=== PATIENT | male | born 1985 | race Caucasian/White ===

== ENCOUNTER 2017-06-20 06:23 | Inpatient (IN) | payer BC ==
[2017-06-18 15:04] VITALS: BMI 40.1
[2017-06-20] MEDS ORDERED: BUPIVACAINE HCL/PF 0.5% (5MG/ML) 10 ML VIAL ONE (07:14)
[2017-06-20] MEDS ORDERED: DEXAMETHASONE SOD PHOSPHATE/PF 10 MG/ML SDV ONE (07:34)
[2017-06-20] MEDS ORDERED: BUPIVACAINE HCL/PF 0.25% (2.5MG/ML) 10 ML VIAL ONE (07:34)
[2017-06-20] MEDS ORDERED: MIDAZOLAM HCL 2 MG/2 ML SINGLE DOSE VIAL ONE ×3 (07:35→07:41)
[2017-06-20] MEDS ORDERED: fentaNYL CITRATE 250 MCG/5 ML VIAL ONE (07:40)
[2017-06-20] MEDS ORDERED: ePHEDrine SULFATE 50 MG/1 ML AMPULE ONE (07:40)
[2017-06-20] MEDS ORDERED: PROPOFOL 20 ML ONE ×4 (07:41)
[2017-06-20] MEDS ORDERED: SUCCINYLCHOLINE CHLORIDE 200 MG/10 ML VIAL ONE (07:41)
[2017-06-20] MEDS ORDERED: ROCURONIUM BROMIDE 50 MG/5 ML VIAL ONE ×2 (07:41)
[2017-06-20] MEDS ORDERED: KETOROLAC TROMETHAMINE 30 MG/1 ML VIAL ONE (07:43)
[2017-06-20] MEDS ORDERED: DEXAMETHASONE SOD PHOSPHATE 4 MG/1 ML VIAL ONE (07:43)
[2017-06-20] MEDS ORDERED: ceFAZolin SODIUM 1 GM VIAL ONE (07:43)
[2017-06-20] MEDS ORDERED: ceFAZolin SODIUM 1 GM VIAL IVPB ONE (08:36)
[2017-06-20] MEDS ORDERED: ONDANSETRON 4 MG/2 ML VIAL IVPUSH PRN ×2 (08:39→11:07)
[2017-06-20] MEDS ORDERED: PROMETHAZINE HCL 25 MG/1 ML VIAL IVPUSH PRN (08:39)
[2017-06-20] MEDS ORDERED: BUPIVACAINE HCL/PF 0.5% (5MG/ML) 10 ML VIAL IJ ONE (09:28)
[2017-06-20] MEDS ORDERED: DESFLURANE GAS 240 ML BOTTLE IH ONE (10:07)
[2017-06-20] MEDS ORDERED: HYDROmorphone HCl/Pf 2 MG/ML VIAL - FOR OR PYXIS USE IVPB PRN (11:10)
--- NOTE | 2017-06-20 11:14 | OP ---
Operative Note - Note: Operative Date: 06/20/17 Pre-Operative Diagnosis: Rule out leak/obstruction s/p vertical sleeve gastrectomy Operation: Upper endoscopy, EGD Post-Operative Diagnosis: Other (No leak/obstruction) Surgeon: Yobani Quinonez Anesthesia: General Specimens Removed: None Estimated Blood Loss (mls): 0 Operative Report Dictated: Yes
--- NOTE | 2017-06-20 11:18 | OP ---
Operative Note - Note: Operative Date: 06/20/17 Pre-Operative Diagnosis: Morbid Obesity. Sleep Apnea. Elevated Liver Function Tests Operation: Laparoscopic Vertical Sleeve Gastrectomy. Wedge Biopsy of Liver. Diagnostic Laparoscopy Findings: Greater curve sleeve gastrectomy performed with #[address] Wedge Biopsy performed on Liver for Hepatomegaly and elevated LFT Post-Operative Diagnosis: Same as Pre-op (Hepatomegaly) Surgeon: Nate Quan Livestock Rancher: Yobani Quinonez Anesthesia: General Specimens Removed: Greater curve of stomach. Wedge biopsy of liver Estimated Blood Loss (mls): 200 Operative Report Dictated: Yes
[2017-06-20] MEDS ORDERED: MEPERIDINE HCL CARPU-JECT 50 MG/1 ML DISP.SYRIN IM PRN (11:25)
--- NOTE | 2017-06-20 11:31 | OP ---
DATE OF OPERATION: 06/20/2017 SURGEON: Pearl Quinonez MD PREOPERATIVE DIAGNOSES: Rule out leak/obstruction after a vertical sleeve gastrectomy. POSTOPERATIVE DIAGNOSES: No leak, no obstruction. SPECIMEN: None. ESTIMATED BLOOD LOSS: None. DRAINS: None. ANESTHESIA: GET. REASON FOR PROCEDURE: This is a 31-year-old gentleman who is undergoing a laparoscopic vertical sleeve gastrectomy by Dr. Nate Quan. To rule out obstruction or leak, upper endoscopy was requested. DESCRIPTION OF PROCEDURE: The endoscope was inserted into the patients mouth, and the esophagus, GE junction, gastric staple line and pouch were inspected. Hemostasis was noted. No leak or obstruction was noted. The stomach was suctioned, and the endoscope removed. The remainder of the procedure was continued by Dr. Nate Quan. PEARL QUINONEZ M.D. CÉSAR/[id number]
[2017-06-20] MEDS ORDERED: ACETAMINOPHEN INJECTION 100 ML IVPB ONE (11:32)
[2017-06-20] MEDS: METOCLOPRAMIDE HCL INJECTION 10 MG/2 ML VIAL IVPUSH SCH ×3 (11:35→23:24)
--- NOTE | 2017-06-20 12:00 | OP ---
DATE OF OPERATION: 06/20/2017 PREOPERATIVE DIAGNOSES: 1. Morbid obesity. 2. Sleep apnea. 3. Elevated liver function tests. POSTOPERATIVE DIAGNOSES: 1. Morbid obesity. 2. Sleep apnea. 3. Elevated liver function tests. 4. Hepatomegaly. PROCEDURE PERFORMED: 1. Laparoscopic vertical sleeve gastrectomy. 2. Wedge biopsy of left lobe of liver. 3. Diagnostic laparoscopy. OPERATING SURGEON: Nate Quan MD HOME SERVICE DIRECTOR: Yobani Quinonez MD ANESTHESIA: General. OPERATIVE PROCEDURE: The patient was brought into the operating room, placed on the OR table in the supine position. All precautions were taken initially including padding for the back and the feet, and Venodyne boots were placed on both lower extremities. At that point, the abdomen was prepped and draped in the usual manner. A Veress needle was placed in the left upper quadrant, and a pneumoperitoneum was established. A number 12 bladeless trocar was placed in the left upper quadrant. Through that trocar, a laparoscopic camera was placed. Under direct vision, a number 15 bladeless trocar was placed in the midline in the supraumbilical position, followed by a number 5 bladeless trocar in the right upper quadrant and a number 5 bladeless trocar below the left costal margin. A Fran liver retractor was then placed in the epigastrium to retract the left lobe of the liver. The left lobe was noted to be extremely enlarged, and because of the elevated liver function tests on the preoperative labs, it was decided that a wedge biopsy would be performed. The liver was very thickened and heavy and boggy appearing. On the edge of the left lobe inferiorly, the LigaSure device was used to dissect a triangular wedge portion of liver. When it was completed, it was sent off the field as specimen to Pathology, and the parenchyma was easily controlled with electrocautery. At this point, attention was directed to the distal part of the stomach where the pylorus was found, and 6 cm were measured proximally. Here, on the greater curve, the operating surgeon lifted the stomach toward the anterior abdominal wall as the assistant strength coach surgeon retracted the gastrocolic ligament inferiorly. The LigaSure device was used to dissect the gastrocolic ligament off the greater curve of stomach. There were a few bleeding areas noted on the stomach wall but also in the gastrocolic ligament that remained. This was controlled with an Endostitch and also with the LigaSure device. The LigaSure continued to be utilized in a superior and vertical direction until the final short gastric vessel between the proximal fundus and the superior pole of spleen was divided. At this juncture, Anesthesia advanced a number 40 bougie. With the bougie held along the lesser curvature, a series of steve was performed which the first 2 being black load steve 6 cm in length along the bougie. This was followed by a series of purple load staple, also along the bougie until the final staple was fired in the left upper quadrant and the greater curve was now completely detached from the lesser curve. It should be noted that prior to firing each staple, both the anterior and posterior salmeron were checked that they were intact. In the area of the esophagogastric junction, approximately 1 to 1.5 cm of serosa remained on the anterior and posterior surfaces. At this juncture of the procedure, Dr. Quinonez stepped out of the procedure and performed an upper endoscopy. The details of the procedure are described in his operative note, but it showed that there were no signs of leaks from the staple line, and he got the endoscope all the way down to the pylorus, showing no obstruction. At this point, the greater curvature that was resected was removed through the number 15 trocar site and sent off the field as specimen to Pathology. Surgicel was placed in the area of the resected stomach, both in the remaining gastrocolic ligament and also along the remaining stomach with the staple line in order to prevent any postoperative bleeding. Under direct vision, all trocars were removed, and the pneumoperitoneum was released. All trocar sites then infused with 0.25% Marcaine and closed with 4-0 Biosyn in subcuticular fashion. The number 15 trocar in the midline was first closed with 3-0 Vicryl on the subcutaneous tissue, followed by 4-0 Biosyn in subcuticular fashion. Dressings were applied. Patient awoke from anesthesia and transferred out of the operating room to the recovery room in stable condition. EXPECTED BLOOD LOSS: 200 mL Sihv [id number]
[2017-06-20 12:17] LABS: HEMATOCRIT 40.6 % (35.4-49); HEMOGLOBIN 13.7 GM/dL (11.7-16.9); MCH 28.9 pg (25.7-33.7); MCHC 33.7 g/dl (32.0-35.9); MEAN CELL VOLUME 85.7 fl (80-96); PLATELET COUNT 265 K/MM3 (134-434); RBC 4.74 M/mm3 (4.00-5.60); WHITE BLOOD COUNT 12.5 K/mm3 (4.0-10.0)
[2017-06-20] MEDS: SODIUM CHLORIDE 1,000 ML IV SCH ×2 (12:25→20:32)
[2017-06-20] MEDS ORDERED: ACETAMINOPHEN 1000 MG/100 ML VIAL (NON FORMULARY) IVPB ONE (12:36)
[2017-06-20 12:39] LABS: ALBUMIN 3.8 g/dl (3.4-5.0); ANION GAP 10 (8-16); BILIRUBIN,TOTAL 0.5 mg/dL (0.2-1.0); BLOOD UREA NITROGEN 15 mg/dL (7-18); CALCIUM 8.2 mg/dL (8.5-10.1); CHLORIDE 103 mmol/L (98-107); CO2 25 mmol/L (21-32); GLUCOSE,RANDOM 153 mg/dL (74-106); POTASSIUM 3.9 mmol/L (3.5-5.1); SGPT/ALT 55 U/L (12-78); SODIUM 138 mmol/L (136-145); TOT PROT 6.6 g/dl (6.4-8.2)
[2017-06-20 12:42] LABS: ALK PHOS 57 U/L (45-117); SGOT/AST 32 U/L (15-37)
[2017-06-20] MEDS: LACTATED RINGERS SOLUTION 1,000 ML IV SCH (15:24)
[2017-06-20] MEDS ORDERED: MEPERIDINE HCL CARPU-JECT 75 MG/1 ML DISP.SYRIN IM PRN (18:21)
[2017-06-20] MEDS: MEPERIDINE HCL CARPU-JECT 50 MG/1 ML DISP.SYRIN IM PRN (20:46)
[2017-06-20] MEDS: ENOXAPARIN NA (PORCINE) 40 MG/0.4 ML DISP.SYRIN SQ SCH (21:32)
[2017-06-20] MEDS: FAMOTIDINE 20 MG/50 ML IVPB 20 MG/50 ML MG IVPB SCH (21:33)
[2017-06-21] MEDS: MEPERIDINE HCL CARPU-JECT 50 MG/1 ML DISP.SYRIN IM PRN ×3 (01:08→10:15)
[2017-06-21] MEDS: METOCLOPRAMIDE HCL INJECTION 10 MG/2 ML VIAL IVPUSH SCH ×4 (05:41→22:17)
[2017-06-21 07:24] LABS: HEMATOCRIT 30.1 % (35.4-49); HEMOGLOBIN 10.5 GM/dL (11.7-16.9); MCH 29.5 pg (25.7-33.7); MCHC 34.7 g/dl (32.0-35.9); MEAN CELL VOLUME 84.8 fl (80-96); MEAN PLT VOLUME 7.8 fl (7.5-11.1); PLATELET COUNT 230 K/MM3 (134-434); RBC 3.55 M/mm3 (4.00-5.60); RDW 13.7 % (11.9-15.9); WHITE BLOOD COUNT 10.3 K/mm3 (4.0-10.0)
[2017-06-21 08:24] LABS: ALBUMIN 3.3 g/dl (3.4-5.0); ALK PHOS 47 U/L (45-117); ANION GAP 9 (8-16); BILIRUBIN,TOTAL 0.7 mg/dL (0.2-1.0); BLOOD UREA NITROGEN 12 mg/dL (7-18); CALCIUM 7.6 mg/dL (8.5-10.1); CHLORIDE 105 mmol/L (98-107); CO2 26 mmol/L (21-32); CREATININE 0.8 mg/dL (0.7-1.3); GLUCOSE,RANDOM 114 mg/dL (74-106); POTASSIUM 4.1 mmol/L (3.5-5.1); SGOT/AST 27 U/L (15-37); SGPT/ALT 45 U/L (12-78); SODIUM 140 mmol/L (136-145); TOT PROT 6.3 g/dl (6.4-8.2)
[2017-06-21] MEDS: FAMOTIDINE 20 MG/50 ML IVPB 20 MG/50 ML MG IVPB SCH ×2 (10:13→21:22)
[2017-06-21] MEDS: ENOXAPARIN NA (PORCINE) 40 MG/0.4 ML DISP.SYRIN SQ SCH ×2 (10:14→21:22)
[2017-06-21] MEDS: SODIUM CHLORIDE 1,000 ML IV SCH (10:14)
[2017-06-21] MEDS ORDERED: ACETAMINOPHEN 325 MG TABLET (FP) PO PRN (14:27)
[2017-06-21] MEDS ORDERED: SODIUM CHLORIDE 1,000 ML IV SCH (14:30)
--- NOTE | 2017-06-21 14:37 | PN ---
Progress Note (short form) - Note Progress Note: POD#1 Afebrile, VSS stable now P-presently 92 (was 130 last night) Pt stated was ambulating when pulse increased Pt just went to bathroom and pilse increased to 115-120 (presently 96) BP_125-150/90 Pt feels well Less abdominal pain than last night P/E- Abd- all trocar sites clean, dry Pt ambulating well Pt urinating frequently WBC-10.3 (decreased) H/H-10.5/30.1 (decreased from 13.7/40.6 post-op) P- PO clear liquids- 2 oz po TID Encourage ambulation, incentive spirometer Cont DVT prophylaxis Check H/H today, again in AM
--- NOTE | 2017-06-21 15:03 | PATH ---
Surgical Pathology Report Patient Name: DAVEY ROD [facility]. Rec. #: [id number] /Age/Gender: 1985 (Age: 31) / M Account: [id number] Location: 4 SO PEDS/ADOL Taken: 06/20/2017 Received: 06/20/2017 Reported: 06/21/2017 Physicians: Nate Quan M.D. Specimen(s) Received A: RULE OUT INTESTINE B: GREATER CURVATURE STOMACH C: LIVER BIOPSY Clinical History Morbid obesity Intraoperative Consult Diagnosis Rule out intestine, frozen section: Gastric mucosa/tissue. Tish Cote M.D., 06/20/17 Final Diagnosis A. DESIGNATED RULE INTESTINE, EXCISION: GASTRIC FUNDIC MUCOSA WITH MODERATE CHRONIC GASTRITIS. IMMUNOSTAIN FOR H. PYLORI IS POSITIVE (MODERATE NUMBER OF ORGANISMS). B. STOMACH, GREATER CURVATURE, SLEEVE GASTRECTOMY: MILD CHRONIC GASTRITIS. IMMUNOSTAIN FOR H. PYLORI IS POSITIVE (FEW TO MODERATE NUMBER OF ORGANISMS). C. 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 TRICHROME STAIN HIGHLIGHTS FOCAL PERICELLULAR FIBROSIS. IRON STAIN DEMONSTRATES MILD IRON DEPOSITS IN HEPATOCYTES. Electronically Signed Duran Cobb M.D. Gross Description A. Received fresh labeled "rule out intestine for frozen section," is a 5.0 x 4.0 x 0.6 cm aggregate of multiple pink-momin, unoriented portions of unremarkable mucosal tissue. Inbound Sales Consultant sections are submitted for frozen section. Inbound Sales Consultant sections are submitted in 2 cassettes as follows: 1-frozen section residue; 2-additional hardware supplies sales representative tissue. B. Received in formalin, labeled "greater curvature of stomach," is a 132 gram, 17.0 x 4.3 x 2.6 cm. portion of stomach with a stapled margin of resection. The serosa is momin-mackey with minimal attached fat. The mucosa is momin-pink with normal folds. No mucosal masses are identified. Inbound Sales Consultant sections are submitted in one cassette. C. Received in formalin labeled "liver biopsy," are 2 momin portions of liver tissue measuring 2.0 x 0.9 x 0.3 cm and 2.0 x 1.2 x 0.6 cm. The larger portion is bisected and the specimen is entirely submitted in one cassette. DL/06/20/2017 saudi06/20/2017
[2017-06-21 16:00] LABS: HEMOGLOBIN 10.2 GM/dL (11.7-16.9); MCH 29.8 pg (25.7-33.7); MCHC 35.2 g/dl (32.0-35.9); MEAN CELL VOLUME 84.6 fl (80-96); MEAN PLT VOLUME 8.1 fl (7.5-11.1); PLATELET COUNT 210 K/MM3 (134-434); RBC 3.42 M/mm3 (4.00-5.60); RDW 13.6 % (11.9-15.9); WHITE BLOOD COUNT 9.4 K/mm3 (4.0-10.0)
--- NOTE | 2017-06-21 16:25 | PN ---
Progress Note (short form) - Note Progress Note: POD #1 - s/p gastric sleeve. Pt. doing well, resting comfortably in bed. No complaints. No apparent anesthetic complications noted. Continue current care.
[2017-06-21 16:31] LABS: ALBUMIN 3.4 g/dl (3.4-5.0); ALK PHOS 44 U/L (45-117); ANION GAP 10 (8-16); BILIRUBIN,TOTAL 0.7 mg/dL (0.2-1.0); BLOOD UREA NITROGEN 10 mg/dL (7-18); CALCIUM 7.7 mg/dL (8.5-10.1); CHLORIDE 104 mmol/L (98-107); CO2 23 mmol/L (21-32); CREATININE 0.7 mg/dL (0.7-1.3); GLUCOSE,RANDOM 103 mg/dL (74-106); POTASSIUM 3.8 mmol/L (3.5-5.1); SGOT/AST 25 U/L (15-37); SGPT/ALT 43 U/L (12-78); SODIUM 137 mmol/L (136-145); TOT PROT 6.2 g/dl (6.4-8.2)
[2017-06-21] MEDS: oxyCODONE HCL 5 MG TABLET PO PRN ×2 (17:50→22:17)
[2017-06-21] MEDS: LACTATED RINGERS SOLUTION 1,000 ML IV SCH (17:51)
[2017-06-22] MEDS: oxyCODONE HCL 5 MG TABLET PO PRN ×3 (03:27→14:23)
[2017-06-22] MEDS: METOCLOPRAMIDE HCL INJECTION 10 MG/2 ML VIAL IVPUSH SCH ×2 (05:45→12:08)
[2017-06-22 07:19] LABS: HEMATOCRIT 28.3 % (35.4-49); HEMOGLOBIN 9.9 GM/dL (11.7-16.9); MCH 29.7 pg (25.7-33.7); MCHC 34.9 g/dl (32.0-35.9); MEAN CELL VOLUME 84.9 fl (80-96); MEAN PLT VOLUME 7.9 fl (7.5-11.1); PLATELET COUNT 199 K/MM3 (134-434); RBC 3.33 M/mm3 (4.00-5.60); RDW 13.6 % (11.9-15.9); WHITE BLOOD COUNT 7.9 K/mm3 (4.0-10.0)
[2017-06-22 07:51] LABS: CHLORIDE 105 mmol/L (98-107); POTASSIUM 3.8 mmol/L (3.5-5.1); SODIUM 139 mmol/L (136-145)
[2017-06-22 07:59] LABS: ALBUMIN 3.4 g/dl (3.4-5.0); ALK PHOS 48 U/L (45-117); ANION GAP 11 (8-16); BILIRUBIN,TOTAL 0.9 mg/dL (0.2-1.0); BLOOD UREA NITROGEN 9 mg/dL (7-18); CALCIUM 7.8 mg/dL (8.5-10.1); CO2 23 mmol/L (21-32); CREATININE 0.7 mg/dL (0.7-1.3); GLUCOSE,RANDOM 86 mg/dL (74-106); SGOT/AST 22 U/L (15-37); SGPT/ALT 36 U/L (12-78); TOT PROT 6.2 g/dl (6.4-8.2)
[2017-06-22] MEDS: ENOXAPARIN NA (PORCINE) 40 MG/0.4 ML DISP.SYRIN SQ SCH (09:46)
[2017-06-22] MEDS: FAMOTIDINE 20 MG/50 ML IVPB 20 MG/50 ML MG IVPB SCH (09:46)
--- NOTE | 2017-06-22 15:12 | PN ---
Progress Note (short form) - Note Progress Note: POD#2 Afebrile; VSS- 72-80 Pt feels well Tolerating PO clear liquids- 3 OZ PO TID NO N/V P/E- Abd-all trocar sites clean, dry Ext- no swelling, no edema WBC-7.9 (decreased) H/H-9.9/28.3 (slight decrease from 10.2/29 yesterday) Reviewed diet, post-op instructions with pt Pt understands well P- D/C home PO clear liquids- 3 oz po TID PO water- 2-4 oz Q1H F/U 5 days
[2017-06-22 16:25] VITALS: BP 136/90; PULSE 78; TEMP 98.6
== END 2017-06-22 16:45 | disposition home or self-care (01) | DRG 621 ==
LOC: JSAMEDAYSX 06:23 → EDSTATUS 11:00 → J4S 15:18
PROVIDERS: ADMIT Surgery; ATTEND Surgery
PROC: 0DJ08ZZ Inspection of Upper Intestinal Tract, Via Natural or Artificial Opening Endoscopic (ICD-10-PCS; 2017-06-20)
PROC: 0DB64Z3 Excision of Stomach, Percutaneous Endoscopic Approach, Vertical (ICD-10-PCS; principal; 2017-06-20 08:00)
PROC: 0FB24ZX Excision of Left Lobe Liver, Percutaneous Endoscopic Approach, Diagnostic (ICD-10-PCS; 2017-06-20 08:00)
DX: E66.01 Morbid (severe) obesity due to excess calories (principal); G47.30 Sleep apnea, unspecified; R16.0 Hepatomegaly, not elsewhere classified; Z68.41 Body mass index [BMI] 40.0-44.9, adult
CPT/HCPCS: 36415; 74241-TC-FY; 80053; 85027; 86850; 86900; 86901; 88305-TC; 88307-TC; 88331-TC; 94010; 94760; J0131; J7030

== ENCOUNTER 2020-09-21 08:43 | Emergency (ER) | payer OTHER, BC ==
[2020-09-21 08:51] VITALS: BP 128/87; PULSE 81; TEMP 98.7; BMI 33.5
[2020-09-21] MEDS ORDERED: KETOROLAC TROMETHAMINE 60 MG/2 ML VIAL IM ONE (09:08)
[2020-09-21] MEDS ORDERED: KETOROLAC TROMETHAMINE 30 MG/1 ML VIAL ONE (09:15)
== END 2020-09-21 10:25 | disposition home or self-care (01) ==
LOC: JERFT 08:43
PROC: 3E0233Z Introduction of Anti-inflammatory into Muscle, Percutaneous Approach (ICD-10-PCS; principal; 2020-09-21)
DX: M25.562 Pain in left knee (principal)
CPT/HCPCS: 73562-TC-LT-FY; 99284-25

== ENCOUNTER 2020-11-08 08:10 | Day surgery (SDC) | payer BC, OTHER ==
[2020-11-01 14:08] VITALS: BMI 33.5
[2020-11-08] MEDS ORDERED: SODIUM CHLORIDE 0.9% P/F 10 ML VIAL IJ ONE (09:18)
[2020-11-08] MEDS ORDERED: BUPIVACAINE LIPOSOME/PF (EXPAREL) 266 MG/20 ML VIAL ONE (09:18)
[2020-11-08] MEDS ORDERED: MIDAZOLAM HCL 2 MG/2 ML SINGLE DOSE VIAL ONE (09:18)
[2020-11-08] MEDS ORDERED: BUPIVACAINE HCL/PF 0.5% (5MG/ML) 10 ML VIAL ONE ×2 (09:18→10:05)
[2020-11-08] MEDS ORDERED: DEXAMETHASONE SOD PHOSPHATE 10 MG/1 ML VIAL ONE (10:03)
[2020-11-08] MEDS ORDERED: fentaNYL CITRATE 250 MCG/5 ML VIAL ONE (10:05)
[2020-11-08] MEDS ORDERED: ROPIVACAINE HCL 0.5% 30ML VIAL ONE (10:11)
[2020-11-08] MEDS ORDERED: ACETAMINOPHEN INJECTION 100 ML IVPB ONE (12:57)
[2020-11-08] MEDS ORDERED: oxyCODONE HCL 5 MG TABLET PO PRN (13:01)
[2020-11-08] MEDS ORDERED: ONDANSETRON 4 MG/2 ML VIAL IVPUSH PRN (13:01)
[2020-11-08] MEDS ORDERED: ACETAMINOPHEN 1000 MG/100 ML VIAL (NON FORMULARY) IVPB ONE (13:02)
[2020-11-08] MEDS ORDERED: LACTATED RINGERS SOLUTION 1,000 ML IV SCH (13:15)
[2020-11-08 15:20] VITALS: BP 137/90; PULSE 82; TEMP 98.2
== END 2020-11-08 15:10 | disposition home or self-care (01) ==
LOC: FASU 08:10
PROVIDERS: ATTEND Orthopaedic Surgery
PROC: 0MQP4ZZ Repair Left Knee Bursa and Ligament, Percutaneous Endoscopic Approach (ICD-10-PCS; principal; 2020-11-08 09:30)
DX: S83.512A Sprain of anterior cruciate ligament of left knee, initial encounter (principal); X58.XXXA Exposure to other specified factors, initial encounter; Y93.9 Activity, unspecified; Y92.9 Unspecified place or not applicable
CPT/HCPCS: 94760; J0131; J1100

== ENCOUNTER 2022-09-17 20:51 | Emergency (ER) | payer OTHER ==
[2022-09-17 20:59] VITALS: BP 130/82; PULSE 63; RESP 20; TEMP 97.7; BMI 31.4
[2022-09-17] MEDS ORDERED: KETOROLAC TROMETHAMINE 30 MG/1 ML VIAL IM ONE (21:22)
[2022-09-17] MEDS ORDERED: CYCLOBENZAPRINE HCL 10 MG TABLET (FP) PO ONE (21:22)
[2022-09-17] MEDS ORDERED: KETOROLAC TROMETHAMINE 30 MG/1 ML VIAL ONE (21:35)
[2022-09-17] MEDS ORDERED: CYCLOBENZAPRINE HCL 10 MG TABLET (FP) ONE (21:35)
== END 2022-09-17 22:12 | disposition home or self-care (01) ==
LOC: JERFT 20:51 → JER 20:51 → JERFT 22:12
PROC: 3E0233Z Introduction of Anti-inflammatory into Muscle, Percutaneous Approach (ICD-10-PCS; principal; 2022-09-17)
DX: S56.911A Strain of unspecified muscles, fascia and tendons at forearm level, right arm, initial encounter (principal); R53.1 Weakness; X50.0XXA Overexertion from strenuous movement or load, initial encounter
CPT/HCPCS: 99284-25

== ENCOUNTER 2022-09-29 20:39 | Day surgery (SDC) | payer BC, OTHER ==
[2022-09-29 20:53] VITALS: BMI 32.1
[2022-09-29] MEDS ORDERED: ONDANSETRON 4 MG/2 ML VIAL IVPUSH ONE (21:40)
[2022-09-29] MEDS ORDERED: SODIUM CHLORIDE 0.9% 500 ML INFUS.BAG IV ONE (21:40)
[2022-09-29] MEDS ORDERED: FAMOTIDINE 20 MG/50 ML IVPB 20 MG/50 ML MG IVPB ONE ×2 (21:40→22:07)
[2022-09-29] MEDS ORDERED: ACETAMINOPHEN 1000 MG/100 ML BAG IVPB ONE (21:40)
[2022-09-29] MEDS ORDERED: ONDANSETRON 4 MG/2 ML VIAL ONE (22:07)
[2022-09-29] MEDS ORDERED: ACETAMINOPHEN INJECTION 100 ML IVPB ONE (22:07)
[2022-09-29 22:30] LABS: BASO % 0.2 % (0-2.0); HEMATOCRIT 43.8 % (35.4-49); MCH 29.5 pg (25.7-33.7); MCHC 34.3 g/dl (32.0-35.9); MEAN CELL VOLUME 86.1 fl (80-96); MEAN PLT VOLUME 8.2 fl (7.5-11.1); NEUT % 85.8 % (42.8-82.8); PLATELET COUNT 232 10^3/uL (134-434); RBC 5.08 M/mm3 (4.00-5.60); RDW 13.4 % (11.9-15.9); WHITE BLOOD COUNT 13.9 K/mm3 (4.0-10.0)
[2022-09-29 22:48] LABS: POTASSIUM 3.8 mmol/L (3.5-5.1)
[2022-09-29 22:51] LABS: BLOOD UREA NITROGEN 8.4 mg/dL (7-18); CALCIUM 9.5 mg/dL (8.5-10.1)
[2022-09-29 22:52] LABS: ALBUMIN 4.2 g/dl (3.4-5.0)
[2022-09-29 22:56] LABS: TOT PROT 7.7 g/dl (6.4-8.2)
[2022-09-30] MEDS ORDERED: ONDANSETRON 4 MG/2 ML VIAL IVPUSH ONE (02:52)
[2022-09-30] MEDS ORDERED: morphine CARPU-JECT 2 MG/1 ML DISP.SYRIN IVPUSH ONE (03:38)
[2022-09-30] MEDS ORDERED: PIPERACILLIN/TAZOB 3.375 GM 3.375 GM in DEXTROSE 5%-WATER - 50 ML IVPB ONE (03:38)
[2022-09-30] MEDS ORDERED: PIPERACILLIN/TAZOB 3.375 GM 3.375 GM/50 ML BAG IVPB ONE (03:46)
[2022-09-30] MEDS ORDERED: ONDANSETRON 4 MG/2 ML VIAL ONE ×2 (03:46→09:02)
[2022-09-30] MEDS ORDERED: ACETAMINOPHEN 1000 MG/100 ML BAG IVPB ONE (07:42)
[2022-09-30] MEDS ORDERED: ACETAMINOPHEN INJECTION 100 ML IVPB ONE (07:42)
[2022-09-30] MEDS ORDERED: BUPIVACAINE HCL/PF 0.5% (5MG/ML) 10 ML VIAL ONE (08:59)
[2022-09-30] MEDS ORDERED: LIDOCAINE HCL/PF 2% SDV 5ML VIAL ONE (09:02)
[2022-09-30] MEDS ORDERED: DEXAMETHASONE SOD PHOSPHATE 4 MG/1 ML VIAL ONE (09:02)
[2022-09-30] MEDS ORDERED: ROCURONIUM BROMIDE 50 MG/5 ML SYRINGE ONE (09:02)
[2022-09-30] MEDS ORDERED: PROPOFOL 20 ML ONE (09:02)
[2022-09-30] MEDS ORDERED: MIDAZOLAM HCL 2 MG/2 ML SINGLE DOSE VIAL ONE (09:02)
[2022-09-30] MEDS ORDERED: SUCCINYLCHOLINE CHLORIDE 200 MG/10 ML SYRINGE ONE (09:02)
[2022-09-30] MEDS ORDERED: BUPIVACAINE HCL/PF 0.5% (5 MG/ML) 30 ML VIAL IJ ONE ×2 (10:05)
[2022-09-30] MEDS ORDERED: GLYCOPYRROLATE 0.2 MG/1 ML VIAL ONE (10:43)
[2022-09-30] MEDS ORDERED: NEOSTIGMINE METHYLSULFATE 0.5 MG/1 ML - 10 ML MDV ONE (10:43)
[2022-09-30] MEDS ORDERED: ONDANSETRON 4 MG/2 ML VIAL IVPUSH PRN (11:30)
[2022-09-30] MEDS ORDERED: LACTATED RINGERS SOLUTION 1,000 ML IV SCH (11:30)
[2022-09-30] MEDS ORDERED: oxyCODONE HCL 5 MG TABLET PO PRN (20:09)
[2022-09-30] MEDS ORDERED: ACETAMINOPHEN 1000 MG/100 ML BAG IVPB PRN (20:09)
[2022-10-01 05:30] VITALS: RESP 20
[2022-10-01] MEDS: oxyCODONE HCL 5 MG TABLET PO PRN (08:04)
[2022-10-01 08:59] LABS: BASO % 0.4 % (0-2.0); EOS % 0.4 % (0-4.5); HEMATOCRIT 38.2 % (35.4-49); HEMOGLOBIN 12.9 GM/dL (11.7-16.9); MCH 29.6 pg (25.7-33.7); MCHC 33.7 g/dl (32.0-35.9); MEAN CELL VOLUME 87.7 fl (80-96); MEAN PLT VOLUME 8.8 fl (7.5-11.1); MONO % 5.5 % (3.8-10.2); NEUT % 83.7 % (42.8-82.8); PLATELET COUNT 129 10^3/uL (134-434); RBC 4.35 M/mm3 (4.00-5.60); RDW 13.3 % (11.9-15.9); WHITE BLOOD COUNT 6.2 K/mm3 (4.0-10.0)
[2022-10-01 09:16] LABS: POTASSIUM 3.5 mmol/L (3.5-5.1)
[2022-10-01 09:18] LABS: CALCIUM 8.6 mg/dL (8.5-10.1)
[2022-10-01 09:19] LABS: BLOOD UREA NITROGEN 11.2 mg/dL (7-18)
[2022-10-01] MEDS ORDERED: DOCUSATE SODIUM 100 MG CAPSULE (FP) PO ONE ×2 (10:45→14:00)
[2022-10-02] MEDS: oxyCODONE HCL 5 MG TABLET PO PRN ×2 (00:26→06:58)
[2022-10-02 10:16] VITALS: BP 159/75; PULSE 77; TEMP 98.2
== END 2022-10-02 13:30 | disposition home or self-care (01) ==
LOC: JER 20:39 → UNDOADMOB 09-30 03:19 → JERBED 09-30 03:19 → J8W 09-30 08:35 → JERBED 09-30 08:35 → JASUSAT 10-01 10:17 → J8W 10-01 10:53 → JASUSAT 10-02 13:30
PROVIDERS: ATTEND Family Medicine
PROC: 0DTJ4ZZ Resection of Appendix, Percutaneous Endoscopic Approach (ICD-10-PCS; principal; 2022-10-01)
DX: K35.80 Unspecified acute appendicitis (principal)
CPT/HCPCS: 36415; 74177-TC; 80048; 80053; 85025; 88304-TC; 93005; 93010; 94760; 99285-25; Q9967

== ENCOUNTER 2023-06-08 06:47 | Emergency (ER) | payer OTHER ==
[2023-06-08 06:53] VITALS: BP 126/73; PULSE 93; RESP 20; TEMP 97.6; BMI 32.8
[2023-06-08] MEDS ORDERED: LIDOCAINE 4% PATCH TP ONE (08:12)
[2023-06-08] MEDS ORDERED: KETOROLAC TROMETHAMINE 30 MG/1 ML VIAL ONE (08:12)
[2023-06-08] MEDS ORDERED: CYCLOBENZAPRINE HCL 10 MG TABLET (FP) ONE (08:12)
[2023-06-08] MEDS: KETOROLAC TROMETHAMINE 30 MG/1 ML VIAL IM ONE (08:19)
[2023-06-08] MEDS: CYCLOBENZAPRINE HCL 10 MG TABLET (FP) PO ONE (08:19)
[2023-06-08] MEDS: LIDOCAINE 5% TOPICAL PATCH TP ONE (08:19)
[2023-06-08] MEDS ORDERED: LIDOCAINE PATCH REMOVAL MC SCH (22:00)
== END 2023-06-08 10:23 | disposition home or self-care (01) ==
LOC: JER 06:47 → JERFT 06:47
PROC: 3E0233Z Introduction of Anti-inflammatory into Muscle, Percutaneous Approach (ICD-10-PCS; principal; 2023-06-08)
DX: M54.50 Low back pain, unspecified (principal); X50.9XXA Other and unspecified overexertion or strenuous movements or postures, initial encounter; Y93.89 Activity, other specified
CPT/HCPCS: 72100-TC-FY; 99284-25

== ENCOUNTER 2023-09-04 22:37 | Emergency (ER) | payer OTHER ==
[~2023-09-04 22:37] MED LIST: LIDOCAINE PATCH REMOVAL MC SCH
[2023-09-04 22:43] VITALS: BP 125/76; PULSE 68; RESP 18; TEMP 98; BMI 32.8
[2023-09-04] MEDS ORDERED: LIDOCAINE 4% PATCH TP ONE (23:11)
[2023-09-04] MEDS ORDERED: IBUPROFEN 600 MG TABLET (FP) PO ONE (23:11)
[2023-09-04] MEDS: IBUPROFEN 600 MG TABLET (FP) PO ONE (23:13)
[2023-09-04] MEDS: LIDOCAINE 5% TOPICAL PATCH TP ONE (23:14)
== END 2023-09-04 23:26 | disposition home or self-care (01) ==
LOC: JERFT 22:37
DX: M54.50 Low back pain, unspecified (principal)
CPT/HCPCS: 99283-25